=== PATIENT | male | born 1990 | race African-American/Black ===

== ENCOUNTER → 2017-07-05 | Outpatient (CLI) | payer MEDICAID | LOC: FLAB 14:02 | PROVIDERS: ATTEND Family Medicine | DX: M25.561 Pain in right knee (principal) ==

== ENCOUNTER → 2017-12-30 | Day surgery (SDC) | payer MEDICAID ==
[~2017-12-30] MED LIST: BUPIVACAINE 0.5% 30 ML SDV ONE; IOPAMIDOL (ISOVUE-M 300) 15 ML VIAL ONE
== END ==
LOC: FIMAGING 12:50
PROVIDERS: ATTEND Radiology Diagnostic Radiology
PROC: 3E0R33Z Introduction of Anti-inflammatory into Spinal Canal, Percutaneous Approach (ICD-10-PCS; principal; 2017-12-30)
PROC: 3E0R3BZ Introduction of Anesthetic Agent into Spinal Canal, Percutaneous Approach (ICD-10-PCS; principal; 2017-12-30)
DX: M48.062 Spinal stenosis, lumbar region with neurogenic claudication (principal)
CPT/HCPCS: Q9967

== ENCOUNTER 2018-01-16 14:00 | Day surgery (SDC) | payer MEDICAID ==
[2018-01-16] MEDS ORDERED: BUPIVACAINE 0.5% 30 ML SDV ONE (15:29)
[2018-01-16] MEDS ORDERED: LIDOCAINE 1% 300 MG/30 ML SDV ONE (15:29)
== END 2018-01-16 17:00 | disposition home or self-care (01) ==
LOC: FIMAGING 14:00
PROVIDERS: ATTEND Neurological Surgery
PROC: 3E0T3BZ Introduction of Anesthetic Agent into Peripheral Nerves and Plexi, Percutaneous Approach (ICD-10-PCS; principal; 2018-01-16)
DX: M48.062 Spinal stenosis, lumbar region with neurogenic claudication (principal); M47.28 Other spondylosis with radiculopathy, sacral and sacrococcygeal region

== ENCOUNTER → 2018-01-30 | Outpatient (CLI) | payer MEDICAID | LOC: FCPNEURO 23:00 | PROVIDERS: ATTEND Psychiatry & Neurology Sleep Medicine | DX: G47.33 Obstructive sleep apnea (adult) (pediatric) (principal) ==